=== PATIENT | female | born 1980 | race Caucasian/White ===

== ENCOUNTER 2017-01-27 04:41 | Emergency (ER) | payer MEDICAID ==
[~2017-01-27] VITALS: Ht 160 cm; Wt 73.5 kg
[~2017-01-27 04:41] MED LIST: ACET500C5 PO; ALBU8.5H5 INH; AZIT250T6 PO; BUTA1CAP39 PO; DICY10CA60 PO; FAMO-18 PO; MAG-19 PO; OMEP20CA9 PO; SUMA25TA3 PO
[2017-01-27 04:46] VITALS: Ht 160 cm; Wt 73.5 kg
--- NOTE | 2017-01-27 05:24 | ERD ---
ER Documentation Chief Complaint Date/Time DATE: 01/27/17 TIME: 05:19 Chief Complaint non traumatic right hand pain x 5 days HPI 36-year-old female presents here in emergency department for complaint of right hand pain for one and half months, patient consistently carries her daughter using her right hand, started to have the pain afterwards, discussed the pain as throbbing pain, 6/10 scale, is worse upon movement. Patient denies any swelling, patient denies any deformity. Patient denies any numbness or tingling. Patient denies any redness. Patient denies any fever or chills. Patient took some Tylenol for pain with mild relief. ROS All systems reviewed and are negative except as per history of present illness. Medications Home Meds Active Scripts Bxdcloqopbknx-Athmgwudtj-Rlxwgrqj-Codeine* (Fioricet w/ Codeine*) [id number]- 30MG Capsule, 1 CAP PO Q6H Y for PAIN LEVEL 1-5, #20 CAP Prov:ESPERANZA KAUFMAN NP 07/23/15 Famotidine* (Pepcid*) 20 Mg Tablet, 20 MG PO BID for 60 Days, TAB Prov:ESPERANZA KAUFMAN NP 07/23/15 Magaldrate/Simethicone* (Mylanta*) 355 Ml Susp, 30 ML PO QID Y for GASTROINTESTINAL UPSET, #1 BOTTLE Prov:ESPERANZA KAUFMAN NP 07/23/15 Acetaminophen* (Tylophen*) 500 Mg Capsule, 1 CAP PO Q6H Y for PAIN AND OR ELEVATED TEMP, #20 CAP Prov:RAJENDRA RAINEY MD 03/18/15 Azithromycin* (Azithromycin*) 250 Mg Tablet, 250 MG PO DAILY, #4 TAB Prov:RAJENDRA RAINEY MD 03/18/15 Albuterol Sulfate* (Albuterol Sulfate* HFA) 8.5 Gm Hfa.aer.ad, 8.5 PUFF INH Q4 Y for SHORTNESS OF BREATH, #1 EA Prov:RAJENDRA RAINEY MD 03/18/15 Reported Medications Dicyclomine Hcl* (Bentyl*) Unknown Strength Capsule, PO QID, CAP 07/23/15 Sumatriptan Succinate* (Sumatriptan Succinate*) Unknown Strength Tablet, PO BID for MIGRAINE HEADACHE, TAB May repeat after 2 hours if needed; MAX 200 mg/24 hours 07/23/15 Omeprazole* (Prilosec*) Unknown Strength Capsule.dr, PO BID, CAP 07/23/15 Allergies Allergies: Coded Allergies: No Known Allergies (Verified Allergy, Unknown, 01/27/17) PMhx/Soc History of Surgery: Yes (c/section) Anesthesia Reaction: No Hx Respiratory Disorders: No Hx Cardiac Disorders: No Hx Psychiatric Problems: No Hx Miscellaneous Medical Probl: Yes (GERD) Hx Alcohol Use: No Hx Substance Use: No Hx Tobacco Use: No Smoking Status: Never smoker FmHx Family History: No coronary disease, No diabetes, No other Physical Exam Vitals Vital Signs Date Time Temp Pulse Resp B/P Pulse Ox O2 Delivery O2 Flow Rate FiO2 01/27/17 04:46 97.8 72 20 109/68 100 Physical Exam GENERAL: The patient is well developed and appropriate for usual state of health, in no apparent distress. CHEST: Clear to auscultation bilaterally. There are no rales, wheezes or rhonchi. HEART: Regular rate and rhythm. No murmurs, clicks, rubs or gallops. No S3 or S4. ABDOMEN: Soft, nontender and nondistended. Good bowel sounds. No rebound or guarding. No gross peritonitis. No gross organomegaly or masses. No Mejia sign or McBurney point tenderness. BACK: No midline or flank tenderness. EXTREMITIES: Mild tenderness on palpation in dorsal aspect of the hand, no deformity noted, no swelling noted, no redness noted, able to do full range of motion without any restriction. Equal pulses bilaterally. There is no peripheral clubbing, cyanosis or edema. No focal swelling or erythema. Full range of motion. Grossly neurovascularly intact. NEURO: Alert and oriented. Cranial nerves 2-12 intact. Motor strength in all 4 extremities with 5/5 strength. Sensation grossly intact. Normal speech and gait. SKIN: There is no apparent rash or petechia. The skin is warm and dry. HEMATOLOGIC AND LYMPHATIC: There is no evidence of excessive bruising or lymphedema. No gross cervical, axillary, or inguinal lymphadenopathy. Results 24 hrs Current Medications Medications (Trade) Dose Ordered Sig/Vlad Route PRN Reason Start Time Stop Time Status Last Admin Dose Admin Ibuprofen (Motrin) 600 mg ONCE ONCE PO 01/27/17 05:30 01/27/17 05:31 01/27/17 05:14 Patient was given medication for pain here in emergency department, after treatment, patient verbalized feeling much better. Patient's pain is improved. After receiving patients xray report, a right hand Velcro support was applied on the patients right hand. After application of the splint, patient has intact sensation and circulation on distal area of the affected joint. Patient does not complain of numbness or tingling after application of the splint. Patient tolerated procedure well. Procedures/MDM Medical Decision Making: Patient's pain is most likely consistent with a contusion or a sprain. There is no suspicion for neurovascular compromise. Patient has intact sensation and circulation of the affected extremity. There is low suspicion for septic arthritis. Patient does not have any fever. Radiology exams of affected area and indicated at this time since patient did not have any trauma in affected area. Disposition: Home. Patient is given prescription for ibuprofen for mild to moderate pain, tramadol for severe pain. Patient was advised to elevate the affected area and apply ice on affected area. Patient was advised that if symptoms are worse, numbness, tingling, high fever, unable to move joint, worsening symptoms, to return to emergency department immediately. Otherwise, patient is advised to follow up with the primary care doctor in 5-7 days for reevaluation of symptoms. Use the wrist/ hand velcro support as prescribed. Departure Diagnosis: Primary Impression: Pain of hand Laterality: right Qualified Code: M79.641 - Pain of right hand Condition: Stable Patient Instructions: Sprain Hand Additional Instructions: . Patient is given prescription for ibuprofen for mild to moderate pain, tramadol for severe pain. Patient was advised to elevate the affected area and apply ice on affected area. Patient was advised that if symptoms are worse, numbness, tingling, high fever, unable to move joint, worsening symptoms, to return to emergency department immediately. Otherwise, patient is advised to follow up with the primary care doctor in 5-7 days for reevaluation of symptoms. Use the wrist/ hand velcro support as prescribed. ESPERANZA KAUFMAN NP Jan 27, 2017 05:24
[2017-01-27] MEDS ORDERED: IBUP-1542 PO (05:26)
[2017-01-27] MEDS ORDERED: TRAM50TA2 PO (05:26)
[2017-01-27] MEDS ORDERED: IBUPROFEN 600 MG TAB PO ONE (05:30)
== END 2017-01-27 05:46 | disposition home or self-care (01) ==
LOC: FTE 04:41
DX: M79.641 Pain in right hand (principal)
CPT/HCPCS: 29125; Z7502; Z7610

== ENCOUNTER 2017-12-11 16:51 | Emergency (ER) | END 2017-12-11 20:01 | disposition home or self-care (01) ==